=== PATIENT | female | born 1980 ===

== ENCOUNTER 2016-05-11 21:54 | Outpatient (CLI) | payer OTHER, MEDICAID ==
[2016-05-11 22:19] VITALS: BMI 23.0
== END 2016-05-11 23:49 | disposition home or self-care (01) ==
LOC: FBCOUT 21:54 → FBC 21:54 → FBCOUT 23:49
PROVIDERS: ATTEND Family Medicine
DX: O47.9 False labor, unspecified (principal); Z3A.00 Weeks of gestation of pregnancy not specified; O09.529 Supervision of elderly multigravida, unspecified trimester
CPT/HCPCS: 59025; G0463

== ENCOUNTER 2016-05-13 07:51 | Inpatient (IN) | payer OTHER, MEDICAID ==
[~2016-05-13 07:51] MED LIST: CEFAZOLIN SODIUM 2 GRAM DUPLEX 2 G in Premix (D5W) 50 ml 1 EACH IV PRN
[2016-05-13 08:25] VITALS: BMI 23.6
[2016-05-13] MEDS ORDERED: IV START KIT ONE (08:27)
[2016-05-13] MEDS ORDERED: LACTATED RINGERS 2,000 ML ONE (08:28)
[2016-05-13] MEDS ORDERED: CEFAZOLIN SODIUM 2 GRAM DUPLEX 50 ML IV ONE (08:28)
[2016-05-13] MEDS: LACTATED RINGERS 1,000 ML IV SCH ×4 (08:59→18:28)
[2016-05-13 09:29] LABS: HEMATOCRIT 36.7 % (37.0-47.0); HEMOGLOBIN 12.5 gm/l (12.0-16.0); MEAN CORPUSCULAR HEMOGLOBIN 30.6 pg (27.0-31.0); MEAN CORPUSCULAR HGB CONC 34.1 g/dl (33.0-37.0); RED CELL DISTRIBUTION WIDTH 13.1 % (11.5-14.5)
[2016-05-13] MEDS ORDERED: FENTANYL 100 MCG/2 ML VIAL ONE ×2 (10:56→12:26)
[2016-05-13] MEDS ORDERED: FAMOTIDINE 10 MG/ML 2ML VIAL ONE (10:56)
[2016-05-13] MEDS ORDERED: MORPHINE SULFATE (DURAMORPH) 1 MG/ML 10ML AMP ONE (10:56)
[2016-05-13] MEDS ORDERED: CITRIC ACID/SODIUM CITRATE 15 ML UDCUP PO ONE (10:56)
--- NOTE | 2016-05-13 10:58 | PDOC1 ---
- HPI 35 year old at 39 0/7 weeks gestational age by LMP, confirmed with 10 4/7- week ultrasound who desires repeat LTCS for means of delivery due to history of prior LTCS. She presents for assessment and review of history in anticipation of her upcoming surgery. Today patient denies any changes in health. Her course has been followed for the following problem list. SOCIAL HISTORY: Marital status: , FOB involved: yes, No Tobacco, alcohol use, or drug use. FAMILY HISTORY: No congenital abnormalities or twins. Home Medications: - Vitamins daily -Levothyroxine 100mcg daily Allergies/Adverse Reactions: Allergies No Known Allergies Allergy (Verified 05/11/16 22:12) - Labs & Studies LABS: Blood Type-O+, Antibody [NEG], Rubella [Immune], RPR-[Negative], HbsAg-[Negative], HIV-[Negative] Pap wnl (12/26/13), GC/Chlamydia-[Negative], UA-[Negative], Quad/Integrated Screen-declined 1 hr GTT-149, 3 hr GTT 82/122/100/83, GBS-positive on urine cx 11/11 REVIEW OF DATES: LMP 08/14/15 -> JOEL 05/20/16 Ultrasound on 10/25/15 @ 10 4/7wks [place] -> EDC 05/18/16 Ultrasound with MFM on 11/23/15 @ 14 6/7wks [place] -> EDC 05/17/16 - Review of Systems 12 point ROS was negative except for Ada Tobin contractions - Physical Exam General: Afebrile, No Acute Distress Psych/Mental Status: Mood/Affect Appropriate Neurological: Alert, Oriented x 4 Lungs: Clear to Auscultation Bilaterally Cardiovascular: Regular Rate and Rhythm Extremities: Full ROM Skin: Normal Color, Warm, Dry, Intact, No Rash - Assessment & Plan 35 y/o at 39 0/7 weeks by LMP with history of c/s x 1, AMA, hypothyroidism and a uterine malformation who will present for schedule repeat LTCS. She also desires permanent sterilization and she will also have a bilateral tubal ligation. Discussed with patient the risks of including infection, bleeding possibly requiring blood transfusion and even hysterectomy, damage to underlying structures including bowel, bladder, uterus, tubes, ovaries, baby, and ureter, as well as will have a scar and can have persistent pain and numbness at incision site. The patient agrees to proceed with LTCS and will arrive at scheduled time for preop. She was advised to avoid any food or drink 8 hours prior to scheduled surgery.
[2016-05-13] MEDS ORDERED: SPINAL PROCEDURAL TRAY 1 EACH ONE (11:03)
[2016-05-13] MEDS ORDERED: OXYTOCIN 10 UNITS/ML VIAL ONE ×2 (11:28)
[2016-05-13] MEDS ORDERED: ONDANSETRON 4 MG/2ML 2 ML VIAL ONE (11:35)
[2016-05-13] MEDS ORDERED: SUFENTANIL CITRATE 50 MCG/ML AMP IV ONE (11:35)
[2016-05-13] MEDS ORDERED: PROMETHAZINE HCL 25 MG/ML VIAL ONE (11:51)
[2016-05-13] MEDS ORDERED: DEXAMETHASONE SOD PHOS 4 MG/1 ML VIAL ONE (11:51)
[2016-05-13] MEDS ORDERED: KETOROLAC TROMETHAMINE 30 MG/ML 1 ML VIAL ONE (12:26)
[2016-05-13] MEDS ORDERED: DIPHENHYDRAMINE HCL 25 MG CAPSULE PO PRN (12:48)
[2016-05-13] MEDS ORDERED: DIPHENHYDRAMINE HCL 50 MG/1 ML VIAL IV PRN ×2 (12:48→13:00)
[2016-05-13] MEDS ORDERED: HYDROMORPHONE HCL 2 MG/ML SYRINGE IV PRN (13:00)
[2016-05-13] MEDS ORDERED: PROMETHAZINE HCL 25 MG/ML VIAL IM PRN (13:00)
[2016-05-13] MEDS ORDERED: ONDANSETRON 4 MG/2ML 2 ML VIAL IV PRN (13:00)
[2016-05-13] MEDS ORDERED: NALBUPHINE HCL 20 MG/ML AMP IV PRN (13:00)
[2016-05-13] MEDS ORDERED: EPHEDRINE SULFATE 50 MG/ML 1ML VIAL IV PRN (13:00)
[2016-05-13] MEDS ORDERED: NALOXONE HCL 0.4 MG/ML VIAL IV PRN (13:00)
[2016-05-13] MEDS ORDERED: HYDROMORPHONE HCL 1 MG/ML SYRINGE IV PRN (13:00)
[2016-05-13] MEDS ORDERED: LACTATED RINGERS 1,000 ML ONE (14:53)
[2016-05-13] MEDS: KETOROLAC TROMETHAMINE 30 MG/ML 1 ML VIAL IV SCH (18:30)
[2016-05-14] MEDS: KETOROLAC TROMETHAMINE 30 MG/ML 1 ML VIAL IV SCH ×2 (01:06→09:42)
[2016-05-14 06:11] LABS: HEMOGLOBIN 10.4 gm/l (12.0-16.0); MEAN CELL VOLUME 90.9 fl (81.0-99.0); MEAN CORPUSCULAR HEMOGLOBIN 30.5 pg (27.0-31.0); MEAN CORPUSCULAR HGB CONC 33.5 g/dl (33.0-37.0); RED CELL DISTRIBUTION WIDTH 13.3 % (11.5-14.5)
[2016-05-14] MEDS: DOCUSATE SODIUM 100 MG CAPSULE PO SCH ×3 (06:16→20:51)
[2016-05-14] MEDS: LEVOTHYROXINE SODIUM 100 MCG TABLET PO SCH (06:40)
[2016-05-14] MEDS: PRENATAL VIT/FE FUMARATE/FA 1 TABLET PO SCH (09:42)
--- NOTE | 2016-05-14 09:42 | PDOC44 ---
- Subjective Day: 1 Reports Flatus, Reports Pain Tolerable, Reports , Reports Lochia Light, Reports Tolerating Regular Diet, Denies Nausea, Denies Vomiting - Objective Temp Pulse Resp BP Pulse Ox 98.6 F 83 16 94/52 05/14/16 07:50 05/14/16 07:50 05/14/16 07:50 05/14/16 07:50 Lab Results 05/14/16 05:30 WBC 10.9 H RBC 3.41 L Hgb 10.4 L D Hct 31.0 L Plt Count 175 Current Medications Generic Name Dose Route Start Last Admin Trade Name Freq PRN Reason Stop Dose Admin Diphenhydramine HCl 25 - 50 mg 05/13/16 12:48 Benadryl PO Q6H PRN Itching (Mild/Moderate) Diphenhydramine HCl 25 - 50 mg 05/13/16 12:48 Benadryl IV Q6H PRN Itching (Severe) Diphenhydramine HCl 25 - 50 mg 05/13/16 13:00 Benadryl IV 05/14/16 11:10 Q4H PRN Itching Docusate Sodium 100 mg 05/13/16 21:00 05/14/16 06:16 Colace PO Not Given BID SANTANA Emollient Ointment 1 applic 05/13/16 12:48 Ouh-[id number] TP PRN PRN sore nipples Ephedrine Sulfate 5 - 10 mg 05/13/16 13:00 Ephedrine Sulfate IV 05/14/16 11:10 Q5M PRN Hydromorphone HCl 0.5 - 2 mg 05/13/16 13:00 Dilaudid IV 05/14/16 11:10 Q1H PRN Pain (Breakthrough) Hydromorphone HCl 0.5 - 2 mg 05/13/16 13:00 Dilaudid IV 05/14/16 11:10 Q1H PRN Pain Lactated Ringer's 1,000 mls @ 100 mls/hr 05/13/16 16:45 05/13/16 18:28 Lactated Ringers IV 100 mls/hr .Q10H SANTANA Administration Ibuprofen 800 mg 05/14/16 11:10 Motrin PO Q6H PRN Pain Ketorolac Tromethamine 30 mg 05/14/16 11:10 Toradol IV 05/18/16 12:30 Q6H PRN Pain (Mild/Moderate) Ketorolac Tromethamine 30 mg 05/13/16 18:30 05/14/16 01:06 Toradol IV 05/14/16 11:10 30 mg Q6H SANTANA Administration Levothyroxine Sodium 100 mcg 05/14/16 07:30 05/14/16 06:40 Levothroid PO 100 mcg DAILY@0730 SANTANA Administration Multivi/Iron Carb/Fe Sulf/FA/Prenat 1 tab 05/14/16 09:00 Plus PO DAILY SANTANA Nalbuphine HCl 1 - 5 mg 05/13/16 13:00 Nubain IV 05/14/16 11:10 Q4H PRN Itching Naloxone HCl 0.2 - 0.4 mg 05/13/16 13:00 Narcan IV 05/14/16 11:10 Q5M PRN Ondansetron HCl 4 mg 05/13/16 13:00 Zofran IV 05/14/16 11:10 Q6H PRN Nausea/Vomiting Promethazine HCl 6.25 - 12.5 mg 05/13/16 13:00 Phenergan IM 05/14/16 11:10 Q4H PRN Nausea/Vomiting Sodium Chloride 10 ml 05/13/16 12:48 05/14/16 01:06 Normal Saline 10ml Flush IV 10 ml PRN PRN Administration IV Flush - Physical Exam General: Afebrile, No Acute Distress Psych/Mental Status: Mood/Affect Appropriate, Bonding Well Neurological: Alert, Oriented x 4 Lungs: Clear to Auscultation Bilaterally Cardiovascular: Regular Rate and Rhythm Breast: Nipples Intact Fundus: Firm, Midline Extremities: Full ROM, No Edema, No Tenderness Skin: Normal Color, Warm, Dry, Intact, No Rash 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 Doing well. Nl exam and vitals. +BF. -routine pp care with support (2) Hypothyroidism (acquired) Status: AcuteAssessment/Plan: On Levothyroxine 100mcg daily Disposition: Stable
[2016-05-14] MEDS: LACTATED RINGERS 1,000 ML IV SCH ×2 (09:48→12:45)
--- NOTE | 2016-05-14 10:16 | PDOC37 ---
Procedure: Repeat Low Transverse Section via Pfannenstiel and Bilateral Tubal Ligation via Cindy Date of Procedure: 05/13/16 Start Time: 11:27 am Preoperative Diagnosis: 1. 39 week intrauterine . 2. History of Cesarian Section x 1 3. Uterine malformation 4. Advanced Maternal Age 5. Hypothyroidism 6. Multiparity desiring permanent sterilization Postoperative Diagnosis: Same Surgeon: Hannah Holguin MD Assist: Antoine Denton MD Indication for Procedure: 35 year old, at 39 weeks 0 days with [] Anesthesia: Spinal with Duramorph Complications: None Estimated Blood Loss: 800 mLs IV Fluids: 1800 mLs of LR Medications: 2 gm of Ancef for routine prophylaxis. 30 units of Pitocin. Urine Output: 350 mLs of clear urine Findings: Male in the right horn of uterus in a left occiput transverse position delivered at 11:34 am with Apgars 9 and 9 and Weight 3402g. Fluid clear. Normal uterus, ovaries, and tubes. Procedure: The patient was taken to the operating room where a spinal anesthesia was placed. She was then prepared and draped in the normal sterile fashion in the dorsal supine position with a leftward tilt. The spinal anesthesia was found to be adequate. A timeout was performed. A Pfannensteil skin incision was then made with the scalpel and carried through to the underlying layer of fascia with the scalpel. The fascia was incised in the midline and the incision extended laterally with the Locke scissors. The superior aspect of the fascial incision was then grasped with the Martha clamps , elevated, and the underlying rectus muscles dissected off bluntly and sharply where needed. Attention was then turned to the inferior aspect of the incision which, in a similar fashion, was grasped, tented up with the Martha clamps, and the rectus muscle dissected off bluntly and sharply with Locke scissors. The rectus muscles were then in the midline, and the peritoneum was identified and entered bluntly. The peritoneal incision was then extended with good visualization of the bladder. The bladder blade was then inserted and the lower uterine segment incised in a transverse fashion with the scalpel. The uterine incision was then extended laterally by pulling superolaterally on both sides. Membranes were ruptured and fluid was clear. The bladder blade was removed the infant's head was flexed out of a left occiput transverse position and delivered atraumatically. The nose and mouth were suctioned with bulb suction and the cord was clamped and cut. The was handed off to the waiting staff submarine warfare officer. The placenta was then delivered with gentle cord traction. The uterus was then exteriorized and a thick midline septum was noted to extend from the fundus half down into the uterus. Both sides of the uterus were cleared of all clots. The uterine incision was repaired with 0 vicryl in a running, locked fashion. A few figures of eight were placed using the same suture. Good hemostasis was observed. Bilateral tubal ligation: Attention was then turned to the patient's bilateral tubal ligation. A Wilbur was used to belt picker the left fallopian tube and a Modified [place]-type of tubal ligation was performed using 0 plain gut suture, ligating each tube twice. The midportion was then excised and submitted for pathology. The same procedure was done on the opposite side. Hemostasis of stumps was excellent. The gutters were cleared of all clots. The uterus was returned to the abdomen. A final look at the hysterotomy confirmed excellent hemostasis. The fascia was reapproximated with 0 Vicryl in a running fashion. The subcutaneous tissue was reapproximated with 4.0 Monocryl. The skin was closed using a Madhu needle. The patient tolerated the procedure well. Sponge, lap and needle counts were correct times three. A debriefing was held at the end of the procedure with anesthesia and nursing staff. The patient was taken to the recovery room in stable condition.
[2016-05-14] MEDS ORDERED: KETOROLAC TROMETHAMINE 30 MG/ML 1 ML VIAL IV PRN (11:10)
[2016-05-14] MEDS ORDERED: ONDANSETRON 4 MG/2ML 2 ML VIAL IV PRN (13:59)
[2016-05-14] MEDS: OXYCODONE/ACETAMINOPHEN 5/325 MG TABLET PO PRN ×2 (14:06→20:51)
[2016-05-14] MEDS: IBUPROFEN 800 MG TABLET PO PRN ×2 (15:41→23:16)
[2016-05-15] MEDS: OXYCODONE/ACETAMINOPHEN 5/325 MG TABLET PO PRN ×3 (04:29→16:50)
[2016-05-15] MEDS: LACTATED RINGERS 1,000 ML IV SCH (07:29)
[2016-05-15] MEDS: LEVOTHYROXINE SODIUM 100 MCG TABLET PO SCH (07:56)
[2016-05-15] MEDS: DOCUSATE SODIUM 100 MG CAPSULE PO SCH ×3 (07:56→21:51)
[2016-05-15] MEDS: IBUPROFEN 800 MG TABLET PO PRN ×2 (07:57→15:06)
[2016-05-15] MEDS: PRENATAL VIT/FE FUMARATE/FA 1 TABLET PO SCH (09:16)
[2016-05-15] MEDS: LANOLIN 50 APPLIC/7G TUBE TP PRN (10:35)
--- NOTE | 2016-05-15 15:25 | PDOC44 ---
- Subjective Reports Flatus, Reports Pain Tolerable, Reports , Reports Lochia Light, Reports Tolerating Regular Diet, Denies Nausea, Denies Vomiting, Denies Fever - Objective Temp Pulse Resp BP Pulse Ox 98.7 F 90 18 108/64 05/15/16 14:58 05/15/16 14:58 05/15/16 14:58 05/15/16 14:58 Current Medications Generic Name Dose Route Start Last Admin Trade Name Freq PRN Reason Stop Dose Admin Diphenhydramine HCl 25 - 50 mg 05/13/16 12:48 Benadryl PO Q6H PRN Itching (Mild/Moderate) Diphenhydramine HCl 25 - 50 mg 05/13/16 12:48 Benadryl IV Q6H PRN Itching (Severe) Docusate Sodium 100 mg 05/13/16 21:00 05/15/16 14:46 Colace PO Not Given BID SANTANA Emollient Ointment 1 applic 05/13/16 12:48 05/15/16 10:35 Elc-F-Dcsups TP 1 tube PRN PRN Administration sore nipples Ibuprofen 800 mg 05/14/16 11:10 05/15/16 15:06 Motrin PO 800 mg Q6H PRN Administration Pain Ketorolac Tromethamine 30 mg 05/14/16 11:10 Toradol IV 05/18/16 12:30 Q6H PRN Pain (Mild/Moderate) Levothyroxine Sodium 100 mcg 05/14/16 07:30 05/15/16 07:56 Levothroid PO 100 mcg DAILY@0730 SANTANA Administration Multivi/Iron Carb/Fe Sulf/FA/Prenat 1 tab 05/14/16 09:00 05/15/16 09:16 Plus PO 1 tab DAILY SANTANA Administration Ondansetron HCl 4 mg 05/14/16 13:59 Zofran IV Q3H PRN Nausea/Vomiting Oxycodone/Acetaminophen 1 tab 05/14/16 13:59 05/15/16 15:06 Percocet 5/325 PO 1 tab Q3H PRN Administration Pain Sodium Chloride 10 ml 05/13/16 12:48 05/14/16 09:42 Normal Saline 10ml Flush IV 10 ml PRN PRN Administration IV Flush - Physical Exam General: Afebrile Psych/Mental Status: Bonding Well, No Mood/Affect Appropriate, No Judgment/ Insight Intact Lungs: Clear to Auscultation Bilaterally Cardiovascular: Regular Rate and Rhythm, No Murmur Breast: Soft, Skin intact Fundus: Firm, Midline, At Umbilicus Abdomen: Normal Bowel Sounds Extremities: No Edema Skin: Warm, Dry - Problems:Assessment/Plan (1) Status post repeat low transverse section Status: AcuteAssessment/Plan: POD 2. Doing well. Nl exam and vitals. +BF. -routine pp care with support Disposition: Stable, Anticipate DC to Home
[2016-05-15] MEDS ORDERED: OXYCODONE/ACETAMINOPHEN 5/325 MG TABLET PO PRN (16:13)
[2016-05-16] MEDS: IBUPROFEN 800 MG TABLET PO PRN (06:31)
[2016-05-16] MEDS: OXYCODONE/ACETAMINOPHEN 5/325 MG TABLET PO PRN (06:31)
[2016-05-16 07:41] VITALS: BP 106/57
[2016-05-16] MEDS: LEVOTHYROXINE SODIUM 100 MCG TABLET PO SCH (07:41)
--- NOTE | 2016-05-16 10:11 | PDOC39B ---
Hospital Course: ADMIT DATE: 05/13/16 DISCHARGE DA4E: 05/16/16 ADMISSION DIAGNOSES: Previous Section, Advanced Maternal Age, Hypothyroidism, Uterine Malformation, Desired Permanent Sterilization PROCEDURES: Repeat Low Transverse Section with Bilateral Tubal Ligation HISTORY OF PRESENT ILLNESS: 35 year old G3 T2 L2 at 29 weeks 0 days presented for repeat section and bilateral tubal ligation. HOSPITAL COURSE: The patient underwent her section with bilateral tubal ligation on 05/13/16. By day of discharge the patient is ambulating, eating, voiding, and passing flatus without difficulty. Pain is controlled and lochia is appropriate. She is and pumping. - Physical Exam Vital Signs: Temp Pulse Resp BP Pulse Ox 98.5 F 84 16 106/57 05/16/16 07:38 05/16/16 07:38 05/16/16 07:38 05/16/16 07:38 General: Afebrile Psych/Mental Status: Mood/Affect Appropriate, Judgment/Insight Intact, Bonding Well Neurological: Grossly Intact, Alert HEENT: Atraumatic, EOMI Lungs: Clear to Auscultation Bilaterally, Normal Air Movement Cardiovascular: Regular Rate and Rhythm, Normal S1, Normal S2, No Murmur Breast: Soft, Skin intact (large nipples noted), Nipples Intact Fundus: Firm, Midline, Below Umbilicus Extremities: No Edema Wound: Dressing Clean/Dry/Intact, Well Approximated - Discharge Diagnosis (1) Status post repeat low transverse section Status: AcuteAssessment/Plan: POD 3. Doing well. Nl exam and vitals. +BF. -routine pp care with support (2) Hypothyroidism (acquired) Status: AcuteAssessment/Plan: was on Levothyroxine 100mcg daily during , will dc home on prepregnancy dose of 75mcg daily - Discharge Plan Condition: Stable Disposition: Home Instruction Forms: Section Discharge Instructions Prescriptions: Docusate Sodium [COLACE 100 MG CAPSULE (SHF)] 100 mg PO BID #100 Ibuprofen [IBUPROFEN 800 MG TABLET (SHF)] 800 mg PO Q8H PRN #100 PRN Reason: Pain Levothyroxine Sodium [LEVOTHROID 75 MCG (SHF)] 75 mcg PO QAMAC #60 tab Oxycodone HCl/Acetaminophen [PERCOCET 5/325 MG TABLET (SHF)] 1 - 2 tab PO Q4H PRN #40 PRN Reason: Pain Follow-Up: Hannah Holguin MD [Primary Care Provider] - In 2 weeks
[2016-05-16] MEDS: PRENATAL VIT/FE FUMARATE/FA 1 TABLET PO SCH (10:36)
[2016-05-16] MEDS: DOCUSATE SODIUM 100 MG CAPSULE PO SCH (10:36)
[2016-05-16] MEDS: LANOLIN 50 APPLIC/7G TUBE TP PRN (11:11)
--- NOTE | 2016-05-16 11:38 | SURGPATH ---
[facility] [address] [place] [id number] Patient Name: VISHNU BURGOS MR#: [id number] : 1980 Gender: F Specimen #: [id number] Collected: 05/13/2016 Received: 05/15/2016 Reported: 05/16/2016 Submitting Phys: KLEVER ESPINOSA Copy To Phys: [facility] Clinical History / Pre-Operative Diagnosis: Ellipse of sterilization, bilateral tubal ligation Specimen Source / Surgical Procedure Performed: Right and left fallopian tubes segments Interpretation: RIGHT AND LEFT FALLOPIAN TUBES, BILATERAL PARTIAL SALPINGECTOMIES: - COMPLETE CROSS SECTIONS OF RIGHT AND LEFT FALLOPIAN TUBES Electronically Signed Out Jonh Kolb M.D. Gross Description: The specimen is received in formalin labeled with the patient's name and "bilateral fallopian segments". Each specimen consists of a 1 cm hargrove rubbery non-fimbriated fallopian tube. The right has a suture and is marked with black ink for identification. Submitted entirely in one cassette. DEXTER Lopez Microscopic Description: The sections show complete cross sections of unremarkable right and left fallopian tube segments. 1: [id number] Z30.2
== END 2016-05-16 12:00 | disposition home or self-care (01) | DRG 766 ==
LOC: FBC 07:51 → EDSTATUS 05-20 07:35
PROVIDERS: ADMIT Family Medicine; ATTEND Family Medicine
PROC: 0UB70ZZ Excision of Bilateral Fallopian Tubes, Open Approach (ICD-10-PCS; principal; 2016-05-13)
PROC: 10D00Z1 Extraction of Products of Conception, Low, Open Approach (ICD-10-PCS; 2016-05-13)
DX: O34.211 Maternal care for low transverse scar from previous cesarean delivery (principal); O99.284 Endocrine, nutritional and metabolic diseases complicating childbirth; E03.9 Hypothyroidism, unspecified; Z37.0 Single live birth; Z3A.39 39 weeks gestation of pregnancy; O09.523 Supervision of elderly multigravida, third trimester; Z30.2 Encounter for sterilization